=== PATIENT | male | born 1965 | race Native Hawaiian/Other Pacific Islander ===

== ENCOUNTER 2016-11-01 00:34 | Emergency (ER) | payer BC ==
[~2016-11-01] VITALS: Ht 182.9 cm; Wt 86.6 kg
== END 2016-11-01 01:14 | disposition home or self-care (01) ==
LOC: ED 00:34
DX: L03.115 Cellulitis of right lower limb (principal)
CPT/HCPCS: 99283

== ENCOUNTER 2016-12-27 09:46 | Outpatient (CLI) | payer BC ==
[2016-12-27 09:58] LABS: PLATELET COUNT 294 K/uL (142-355)
[2016-12-27 10:09] LABS: POTASSIUM 4.3 mmol/L (3.6-5.2); SODIUM 137 mmol/L (136-145)
== END 2016-12-27 19:07 | disposition home or self-care (01) ==
LOC: LAB 09:46
PROVIDERS: Nurse Practitioner Family
DX: L03.115 Cellulitis of right lower limb (principal); M79.604 Pain in right leg; R60.0 Localized edema; L81.9 Disorder of pigmentation, unspecified; R68.89 Other general symptoms and signs
CPT/HCPCS: 80053; 85027; 85379

== ENCOUNTER 2017-01-25 08:49 | Outpatient (CLI) | payer BC | END 2017-01-25 10:00 | disposition home or self-care (01) | LOC: US 08:49 | DX: R94.5 Abnormal results of liver function studies (principal); R19.4 Change in bowel habit; R79.0 Abnormal level of blood mineral | CPT/HCPCS: 36415; 80074; 82728; 83540; 83550; 85044 ==

== ENCOUNTER 2017-03-21 13:26 | Outpatient (CLI) | payer BC | END 2017-03-21 14:30 | disposition home or self-care (01) | LOC: LABW 13:26 | DX: R94.5 Abnormal results of liver function studies (principal) | CPT/HCPCS: 36415; 81256; 87522 ==

== ENCOUNTER 2018-10-01 13:52 | Outpatient (CLI) | payer BC | END 2018-10-01 20:59 | disposition home or self-care (01) | LOC: MRI 13:52 | DX: M54.12 Radiculopathy, cervical region (principal) ==

== ENCOUNTER 2018-11-27 12:32 | Day surgery (SDC) | payer BC | END 2018-11-27 15:08 | disposition home or self-care (01) | LOC: OR 12:32 | PROC: 0DB68ZZ Excision of Stomach, Via Natural or Artificial Opening Endoscopic (ICD-10-PCS; principal; 2018-11-27) | PROC: 0DC38ZZ Extirpation of Matter from Lower Esophagus, Via Natural or Artificial Opening Endoscopic (ICD-10-PCS; 2018-11-27) | PROC: 0D738ZZ Dilation of Lower Esophagus, Via Natural or Artificial Opening Endoscopic (ICD-10-PCS; 2018-11-27) | DX: T18.128A Food in esophagus causing other injury, initial encounter (principal); K22.10 Ulcer of esophagus without bleeding; K22.2 Esophageal obstruction; K29.50 Unspecified chronic gastritis without bleeding; K26.9 Duodenal ulcer, unspecified as acute or chronic, without hemorrhage or perforation; K44.9 Diaphragmatic hernia without obstruction or gangrene; K20.9 Esophagitis, unspecified; K29.80 Duodenitis without bleeding; K25.9 Gastric ulcer, unspecified as acute or chronic, without hemorrhage or perforation | CPT/HCPCS: J2001; J2250; J2405; J2704 ==

== ENCOUNTER 2018-12-13 07:42 | Day surgery (SDC) | payer BC, OTHER | END 2018-12-13 09:57 | disposition home or self-care (01) | LOC: OR 07:42 | PROC: 0DJ08ZZ Inspection of Upper Intestinal Tract, Via Natural or Artificial Opening Endoscopic (ICD-10-PCS; principal; 2018-12-13) | PROC: 0D738ZZ Dilation of Lower Esophagus, Via Natural or Artificial Opening Endoscopic (ICD-10-PCS; 2018-12-13) | DX: K22.2 Esophageal obstruction (principal); K22.10 Ulcer of esophagus without bleeding; K29.70 Gastritis, unspecified, without bleeding; K21.0 Gastro-esophageal reflux disease with esophagitis; K44.9 Diaphragmatic hernia without obstruction or gangrene; R13.19 Other dysphagia ==

== ENCOUNTER 2018-12-24 12:33 | Outpatient (CLI) | payer BC, OTHER ==
[2018-12-24 13:28] LABS: PLATELET COUNT 315 K/uL (142-355)
[2018-12-24 13:36] LABS: POTASSIUM 3.7 mmol/L (3.6-5.2)
== END 2018-12-24 19:30 | disposition home or self-care (01) ==
LOC: LABW 12:33
PROVIDERS: Neurological Surgery
DX: Z01.812 Encounter for preprocedural laboratory examination (principal); Z79.01 Long term (current) use of anticoagulants; M47.22 Other spondylosis with radiculopathy, cervical region; Z72.0 Tobacco use; I10 Essential (primary) hypertension
CPT/HCPCS: 36415; 80053; 85027; 93005

== ENCOUNTER 2019-02-21 14:14 | Outpatient (CLI) | payer BC, OTHER | END 2019-02-21 20:14 | disposition home or self-care (01) | LOC: RAD 14:14 | DX: M47.22 Other spondylosis with radiculopathy, cervical region (principal) ==

== ENCOUNTER 2019-04-11 08:38 | Outpatient (CLI) | payer BC, OTHER | END 2019-04-11 09:00 | disposition home or self-care (01) | LOC: US 08:38 | DX: Z82.49 Family history of ischemic heart disease and other diseases of the circulatory system (principal) ==

== ENCOUNTER 2019-08-07 16:41 | Outpatient (CLI) | payer BC, OTHER ==
[2019-08-07 17:01] LABS: PLATELET COUNT 275 K/uL (142-355)
[2019-08-07 17:02] LABS: POTASSIUM 3.5 mmol/L (3.6-5.2)
== END 2019-08-07 21:46 | disposition home or self-care (01) ==
LOC: LABW 16:41
PROVIDERS: Registered Nurse
DX: R60.0 Localized edema (principal)
CPT/HCPCS: 36415; 80053; 83880; 85027

== ENCOUNTER 2019-08-14 17:11 | Outpatient (CLI) | payer BC, OTHER ==
[2019-08-14 17:57] LABS: PLATELET COUNT 355 K/uL (142-355)
== END 2019-08-14 19:39 | disposition home or self-care (01) ==
LOC: LABW 17:11
PROVIDERS: Registered Nurse
DX: R60.9 Edema, unspecified (principal)
CPT/HCPCS: 36415; 85027

== ENCOUNTER 2019-09-27 09:51 | Outpatient (CLI) | payer BC, OTHER | END 2019-09-27 19:38 | disposition home or self-care (01) | LOC: US 09:51 | DX: R60.0 Localized edema (principal); M79.605 Pain in left leg; M79.604 Pain in right leg ==

== ENCOUNTER 2021-05-28 10:02 | Outpatient (CLI) | payer OTHER ==
[2021-05-28 10:24] LABS: PLATELET COUNT 228 K/uL (142-355)
[2021-05-28 10:32] LABS: POTASSIUM 3.1 mmol/L (3.6-5.2)
== END 2021-05-28 19:05 | disposition home or self-care (01) ==
LOC: LABW 10:02
PROVIDERS: ATTEND Registered Nurse
DX: A07.1 Giardiasis [lambliasis] (principal)
CPT/HCPCS: 36415; 80053; 85027

== ENCOUNTER 2022-01-25 16:47 | Emergency (ER) | payer OTHER ==
[~2022-01-25] VITALS: Ht 182.9 cm; Wt 81.6 kg
[2022-01-25 17:56] LABS: PLATELET COUNT 294 K/uL (142-355)
[2022-01-25 18:07] LABS: POTASSIUM 3.5 mmol/L (3.6-5.2)
[2022-01-25 19:51] VITALS: BP 134/86; TEMP 98.9
== END 2022-01-25 19:52 | disposition home or self-care (01) ==
LOC: ED 16:47
PROVIDERS: Emergency Medicine Emergency Medical Services
DX: N13.2 Hydronephrosis with renal and ureteral calculous obstruction (principal); K80.20 Calculus of gallbladder without cholecystitis without obstruction
CPT/HCPCS: 80053; 82150; 83690; 85027; 96360; 96376; 99284; J1170; J1885; J2405; Q9963

== ENCOUNTER 2023-10-10 18:32 | Emergency (ER) | payer OTHER ==
[~2023-10-10] VITALS: Ht 182.9 cm; Wt 83.9 kg
[2023-10-10] MEDS ORDERED: SODIUM CHLORIDE 0.9% 1,000 ML IV ONE ×3 (19:29→22:56)
[2023-10-10] MEDS ORDERED: MORPHINE SULFATE 4 MG INJ INJ ONE (19:29)
[2023-10-10] MEDS ORDERED: Ondansetron HCl 4 MG INJ INJ ONE ×2 (19:29→22:00)
[2023-10-10] MEDS ORDERED: MORPHINE SULFATE 4 MG INJ ONE (19:54)
[2023-10-10 20:09] LABS: PLATELET COUNT 212 K/uL (142-355)
[2023-10-10 20:19] LABS: POTASSIUM 4.5 mmol/L (3.6-5.2); SODIUM 138 mmol/L (136-145)
[2023-10-10] MEDS ORDERED: MEPERIDINE HCL INJ ONE (21:59)
[2023-10-10] MEDS ORDERED: PIPERACILLIN SOD TAZOBACTAM SO IVPB SCH (22:33)
[2023-10-10] MEDS ORDERED: MEPERIDINE HCL ONE (22:45)
[2023-10-10] MEDS ORDERED: SODIUM CHLORIDE 0.9% 1,000 ML IV SCH (22:54)
[2023-10-10] MEDS ORDERED: PIPERACILLIN SOD TAZOBACTAM SO IV ONE ×2 (22:56→22:58)
[2023-10-10] MEDS ORDERED: SOD CHLORIDE 0.9% 100 ML IV ONE (22:58)
[2023-10-11] MEDS ORDERED: MEPERIDINE HCL ONE (00:44)
[2023-10-11] MEDS ORDERED: MEPERIDINE HCL INJ ONE (00:47)
[2023-10-11 00:48] VITALS: BP 110/64; TEMP 98.4
== END 2023-10-11 00:48 | disposition short-term general hospital (02) ==
LOC: ED 18:32
PROVIDERS: Family Medicine
DX: K80.20 Calculus of gallbladder without cholecystitis without obstruction (principal); K81.9 Cholecystitis, unspecified; F17.200 Nicotine dependence, unspecified, uncomplicated; R42 Dizziness and giddiness; R10.9 Unspecified abdominal pain; R11.2 Nausea with vomiting, unspecified; E86.0 Dehydration
CPT/HCPCS: 36415; 80053; 81002; 83690; 85027; 96361; 96365; 96375; 96376; 99284; J2175; J2270; J2405; J2543; Q9963